=== PATIENT | male | born 1990 | race Caucasian/White ===

== ENCOUNTER 2025-04-09 15:18 | Outpatient (AMB) | payer OTHER, SELFPAY ==
--- NOTE | 2025-04-09 15:23 | MHC.PC.OV ---
Vital Signs 04/09/25 15:31 Height 5 ft 10.08 in Weight 183 lb BMI 26.2 BP 127/80 Respiration 14 Pulse 68 Pulse Source Pulse Oximeter Temp 98.6 F Temp Source Temporal Artery Scan Pulse Oximetry (%) 99 Oxygen Delivery Method Room Air Intake Visit Reasons: New Patient [employer] Good[employer] Supervisor Required: No Accompanied by: Self / Same As Patient Allergies No Known Allergies Allergy (Verified 04/09/25 15:51) Medication List - Last Reconciled 04/09/25 by Junie Connolly PA-C No Known Home Meds Tobacco use date assessed: 04/09/25 Dental Screening Dental Screen Date: 04/09/25 Did you have a dental visit in the last 12 months?: No Did you have a dental problem in the last 6 months where you did not have access to dental care?: No HPI New Patient HPI Details The patient is a 35-year-old male presenting for a new patient appointment with concerns about skin lesions and heart palpitations. The patient reports having moles that have been present since , with recent changes in size and elevation noted, particularly a large mole on the back. He has been advised by dermatologists in the past to monitor these moles for changes. The patient mentions experiencing heart palpitations, described as a sensation of gurgling or irregular heartbeats, which he associates with a family history of cardiac issues, including his father's from heart failure due to an enlarged heart. He expresses concern about these sensations and desires further evaluation to prevent similar outcomes. The patient has a history of anxiety and depression, for which he has recently started psychiatric care, including therapy and potential medication management. He reports that the cost of therapy was less than anticipated, which encouraged him to seek treatment. The patient reports recreational use of sildenafil, obtained online, for erectile dysfunction, although he does not perceive it as a significant issue. He notes experiencing adverse effects such as headaches and elevated blood pressure when taking higher doses. The patient has a history of situs inversus, confirmed during an appendicitis surgery, which resulted in atypical surgical scars due to the reversed organ placement. He reports a history of exercise-induced asthma, experiencing significant difficulty during physical activities such as running, despite using albuterol infrequently. The patient consumes alcohol but does not currently wish to cease drinking, viewing it as a social activity rather than a health concern. Social History - Substance use: Recreational use of sildenafil and alcohol consumption without desire to cease - Exercise: History of exercise-induced asthma, uses albuterol infrequently [facility] Medical History (Updated 04/09/25 @ 17:05 by Junie Connolly PA-C) Heart palpitations Alcohol use disorder Situs inversus Erectile dysfunction Intermittent palpitations Depression Anxiety Exercise-induced asthma Numerous skin moles Surgical History History of appendectomy Family History Father BP (high blood pressure) Heart failure Mother Pre-diabetes Social History Housing: House Alcohol intake: current Alcohol intake frequency: a few times a week Patient Tobacco Use Status: Former Tobacco user service: No Current occupational status: employed Cognitive needs: No Hearing needs: No Vision needs: Yes (RX glasses) Questionnaire PHQ-9 Over the last 2 weeks, how often have you been bothered by any of the following problems? 1. Little interest or pleasure in doing things: several days 2. Feeling down, depressed, or hopeless: several days 3. Trouble falling or staying asleep, or sleeping too much: nearly every day 4. Feeling tired or having little energy: several days 5. Poor appetite or overeating: nearly every day 6. Feeling bad about yourself - or that you are a failure or have let yourself or your family down: nearly every day 7. Trouble concentrating on things, such as reading the newspaper or watching television: nearly every day 8. Moving or speaking so slowly that other people could have noticed. Or the opposite - being so fidgety or restless that you have been moving around a lot more than usual: not at all 9. Thoughts that you would be better off or of hurting yourself in some way: not at all Total score: 15 Depression Screening Interpretation: Positive Depression Screening Follow-up: Existing condition and In treatment (Patient recently had an intake at the [facility] on [facility]) Depression Screening Done: Yes 82115 - PHQ-9 Billing: Yes Source: Developed by Drs. Luis Fernando Laura, Marcela B.W. Abran Diaz and colleagues, with an educational j carlos from [employer]. Thrive Questionnaire Date Thrive assessed: 04/09/25 I am a: Patient What is your living situation today?: I have a steady place to live Within the past 12 months, did the food you bought not last and you didn't have the money to get more?: Never true Within the past 12 months, did you worry whether your food would run out before you got money to buy more?: Never true Do you have trouble paying for medicines?: No Do you have trouble getting transportation to medical appointments?: No Do you have trouble paying your heating and electricity bill?: No Do you have trouble taking care of your child, family member or friend?: No Do you have trouble with day-to-day activities such as bathing, preparing meals, shopping, managing finances, etc.?: No Are you currently unemployed and looking for a job?: No Are you interested in more education?: No Please select the resources that you would like help with: None THRIVE Score: 0 AUDIT C Alcohol Use Questionnaire (AUDIT-C) 1. How often do you have a drink containing alcohol?: 4 or more times a week 2. How many drinks containing alcohol do you have on a typical day when you are drinking?: 5 or 6 3. How often do you have six or more drinks on one occasion?: Weekly Total Score: 9 Score Reviewed/Action Taken: Yes CORINA-7 AMB Questionnaire CORINA-7 Date CORINA - 7 assessed: 04/09/25 Feeling nervous, anxious, or on edge: 2 = More than half the days Not being able to stop or control worryin = Several days Worrying too much about different things: 2 = More than half the days Trouble relaxin = Several days Being so restless that it is hard to sit still: 0 = Not at all Becoming easily annoyed or irritable: 3 = Nearly every day Feeling afraid as if something awful might happen: 1 = Several days Total CORINA-7 score (0-4 normal; 5-9 mild; 10-14 moderate; 15-21 severe): 10 Source: Developed by Drs. Luis Fernando Laura, Abran Brothers and colleagues, with an educational j carlos from [employer]. CORINA-7 Assessment Billing CORINA-7 Assessment Tool: CORINA-7 Assessment 94322 Review of Systems Const Details: - Dermatological: Reports changes in moles, including size and elevation - Cardiovascular: Reports heart palpitations, denies chest pain or syncope - Respiratory: Reports exercise-induced asthma, denies daily use of inhaler - Neurological: Reports headaches associated with sildenafil use - Psychiatric: Reports anxiety and depression, currently under treatment All systems reviewed & are unremarkable except as noted in HPI and below Physical exam (Primary Care) Vital Signs: Last Vital Signs Temp 98.6 F 04/09/25 15:31 Pulse 68 04/09/25 15:31 Resp 14 04/09/25 15:31 BP 127/80 04/09/25 15:31 Pulse Ox 99 04/09/25 15:31 Oxygen Delivery Method Room Air 04/09/25 15:31 Care Plan Goal for BP management: <140/90 at Goal BMI result Body Mass Index 26.2 BMI Assessment/Plan discussion: High BMI High, discussed plan: lifestyle, weight reduction, dietary, physical activity and alcohol moderation Tobacco/Smoking Status: Tobacco use Status Tobacco use date assessed 04/09/25 04/09/25 15:25 Patient Tobacco Use Status Former Tobacco user 04/09/25 15:41 PHQ-9: PHQ-9 Score PHQ-9: Total score 15 04/09/25 15:52 Depression Screening Interpretation: Positive Depression Screening Follow-up: Existing condition and In treatment (Patient recently had an intake at the [facility] on [facility]) Thrive Assessment: Date of Thrive Assessment Date Thrive assessed 04/09/25 04/09/25 15:25 Const Other: Appearance: Alert. Oriented X3. No acute distress. Head: Normal external exam. Normocephalic. Atraumatic. Eyes: Pupils are equal, round, and reactive to light. Extraocular movements intact. Conjunctiva and sclera normal. Eyelids normal. Ears: External auditory canal normal. Tympanic membranes normal. Throat: Pharynx normal. Uvula midline. Moist mucous membranes. Neck: Normal inspection. Neck supple. Full range of motion. Cardiovascular: Normal heart rate and rhythm. Heart sound normal. No murmurs noted. Pulses normal throughout. Patient reports occasional heart palpitations and family history of cardiac issues. Respiratory: No respiratory distress. Painless inspiration. Breath sounds normal. No wheezes/rales/rhonchi noted. Chest nontender. No accessory muscle usage noted or decreased air movement noted. Abdomen: Soft and nontender. Bowel sounds normal in all 4 quadrants. No distention noted. No organomegaly noted. No visible injury noted. Back: No costovertebral angle tenderness. Full range of motion noted. Skin: Skin warm and dry. Normal skin color. Normal skin turgor. Multiple moles noted, with one on the back that is raised. No rashes/lesions/lacerations noted. Extremities: No lower extremity edema. Extremities exhibit normal range of motion. Extremities nontender. Neuro: Oriented X 3. No motor deficit. No sensory deficit. Reflexes normal. Coding Level of Care Code New Pt Level 4 (27637) Complex EM visit Add On G2211 Diagnoses Numerous skin moles D22.9 Exercise-induced asthma J45.990 Anxiety F41.9 Depression F32.A Erectile dysfunction N52.9 Situs inversus Q89.3 Alcohol use disorder F10.90 Heart palpitations R00.2 Additional Codes CORINA-7 Assessment Billing - CORINA-7 Assessment Tool: CORINA-7 Assessment 10026 ([id number]) PHQ-9 - 10651 - PHQ-9 Billing: Yes ([id number]) Assessment & Plan Assessment & Plan (1) Numerous skin moles: Code(s): D22.9 - Melanocytic nevi, unspecified Category: Medical Plan: The patient will be referred to dermatology for evaluation of moles that have changed in size and elevation. A dredgemaster who accepts referrals quickly will be prioritized, with an alternative option if insurance issues arise. (2) Exercise-induced asthma: Code(s): J45.990 - Exercise induced bronchospasm Category: Medical Plan: The patient is advised to use albuterol as needed for exercise-induced asthma symptoms. (3) Anxiety: Code(s): F41.9 - Anxiety disorder, unspecified Category: Medical Plan: The patient has initiated psychiatric care, including therapy and potential medication management, with no immediate changes to this plan discussed. (4) Depression: Code(s): F32.A - Depression, unspecified Category: Medical Plan: The patient has initiated psychiatric care, including therapy and potential medication management, with no immediate changes to this plan discussed. (5) Erectile dysfunction: Code(s): N52.9 - Male erectile dysfunction, unspecified Category: Medical Plan: The patient is advised to refrain from using sildenafil until cardiac evaluation is complete due to potential cardiovascular side effects. A prescription for sildenafil will be considered after ensuring cardiac health is stable. (6) Situs inversus: Code(s): Q89.3 - Situs inversus Category: Medical Plan: No specific interventions are planned for situs inversus at this time, as it is a known anatomical variation. (7) Alcohol use disorder: Code(s): F10.90 - Alcohol use, unspecified, uncomplicated Category: Medical Plan: The patient does not express a desire to cease alcohol consumption, and no intervention is planned at this time. (8) Heart palpitations: Code(s): R00.2 - Palpitations Category: Medical Plan: The patient will undergo a stress test, ultrasound, and Holter monitor to evaluate cardiac function due to a family history of heart disease. Blood work will be conducted to assess for any underlying conditions contributing to palpitations. Plan Plan Patient was informed and verbally consented to the use of an ambient scribe for clinic note documentation during this visit. 1. Skin Lesions The patient will be referred to dermatology for evaluation of moles that have changed in size and elevation. A dredgemaster who accepts referrals quickly will be prioritized, with an alternative option if insurance issues arise. 2. Erectile Dysfunction The patient is advised to refrain from using sildenafil until cardiac evaluation is complete due to potential cardiovascular side effects. A prescription for sildenafil will be considered after ensuring cardiac health is stable. 3. Anxiety And Depression The patient has initiated psychiatric care, including therapy and potential medication management, with no immediate changes to this plan discussed. 4. Heart Palpitations The patient will undergo a stress test, ultrasound, and Holter monitor to evaluate cardiac function due to a family history of heart disease. Blood work will be conducted to assess for any underlying conditions contributing to palpitations. 5. Situs Inversus No specific interventions are planned for situs inversus at this time, as it is a known anatomical variation. 6. Exercise-Induced Asthma The patient is advised to use albuterol as needed for exercise-induced asthma symptoms. 7. Alcohol Use The patient does not express a desire to cease alcohol consumption, and no intervention is planned at this time. During the visit, I discussed the need for dermatology referral for the patient's changing moles and the importance of cardiac evaluation due to family history of heart disease. I advised the patient to refrain from using sildenafil until cardiac health is confirmed and discussed the potential side effects of its use. We reviewed the patient's psychiatric care plan and the affordability of therapy, which has encouraged him to continue treatment. I also explained the process for upcoming tests, including stress test, ultrasound, and Holter monitor, and the importance of fasting for blood work. Orders: Orders CA stress test Today R00.2 - Palpitations Comprehensive [place]. Panel Fast Today Z00.00 - Encounter for general adult medical examination without abnormal findings Dihydrotestosterone Today Z00.00 - Encounter for general adult medical examination without abnormal findings Testosterone, Free/Total Today Z00.00 - Encounter for general adult medical examination without abnormal findings TSH reflex Free T4 Today Z00.00 - Encounter for general adult medical examination without abnormal findings Magnesium Today Z00.00 - Encounter for general adult medical examination without abnormal findings NM cardiolite stress test Today R00.2 - Palpitations CA echo transthoracic complete Today R00.2 - Palpitations ECG 12 lead EKG Today R00.2 - Palpitations C Reactive Protein Today Z00.00 - Encounter for general adult medical examination without abnormal findings Complete Blood Count Auto Diff Today Z00.00 - Encounter for general adult medical examination without abnormal findings Hemoglobin A1c Today Z00.00 - Encounter for general adult medical examination without abnormal findings PSA,Total (Free>4and<10) Today Z00.00 - Encounter for general adult medical examination without abnormal findings Lipid Panel Today Z00.00 - Encounter for general adult medical examination without abnormal findings Liver Panel Today Z00.00 - Encounter for general adult medical examination without abnormal findings Vitamin D 25-OH Total Today Z00.00 - Encounter for general adult medical examination without abnormal findings Vitamin B12 and Folate Today Z00.00 - Encounter for general adult medical examination without abnormal findings ECG 3 day holter monitor Today R00.2 - Palpitations Referrals Dermatology Referral D22.9 - Melanocytic nevi, unspecified Patient Instructions: - Schedule and attend dermatology appointment for mole evaluation. - Refrain from using sildenafil until cardiac evaluation is complete. - Continue psychiatric care and therapy sessions. - Complete fasting blood work as instructed. - Attend scheduled cardiac tests, including stress test and Holter monitor.
[2025-04-09 15:31] VITALS: BP 127/80; PULSE 68; RESP 14; TEMP 37; O2SAT 99; BMI 26.2
== END 2025-04-09 16:08 | disposition home or self-care (01) ==
LOC: HO.HMCSH 15:18
PROVIDERS: Visit Provider Physician Assistant Medical
DX: D22.9 Melanocytic nevi, unspecified (principal); J45.990 Exercise induced bronchospasm; F41.9 Anxiety disorder, unspecified; F32.A Depression, unspecified; N52.9 Male erectile dysfunction, unspecified; Q89.3 Situs inversus; F10.90 Alcohol use, unspecified, uncomplicated; R00.2 Palpitations

== ENCOUNTER → 2025-04-09 15:18 | Outpatient (BNVA) | payer OTHER, SELFPAY | PROVIDERS: Visit Provider Physician Assistant Medical | DX: D22.9 Melanocytic nevi, unspecified (principal); J45.990 Exercise induced bronchospasm; F41.9 Anxiety disorder, unspecified; F32.A Depression, unspecified; N52.9 Male erectile dysfunction, unspecified; F10.90 Alcohol use, unspecified, uncomplicated; R00.2 Palpitations; Q89.3 Situs inversus; Z13.31 Encounter for screening for depression; Z13.39 Encounter for screening examination for other mental health and behavioral disorders | CPT/HCPCS: 96127 ==

== ENCOUNTER 2025-04-14 09:47 | Outpatient (REF) | payer OTHER, SELFPAY ==
[2025-04-14 10:02] LABS: MANUAL DIFF FLAG NO
[2025-04-14 10:59] LABS: Hematocrit 43.4 % (42.0-52.0); Hemoglobin 14.8 g/dl (14.0-18.0); Imm Gran Abs Auto 0.05 X10*3/uL (0.00-0.03); Imm Gran Pct Auto 0.7 % (0.0-0.4); Lymphocytes Absolute Auto 2.5 X10*3/uL (1.2-4.9); Mean Corpuscular HGB Conc 34.1 g/dl (31.0-36.0); Mean Corpuscular Hemoglobin 31.9 pg (27.0-33.0); Mean Corpuscular Volume 93.5 fL (80.0-98.0); NRBC Abs Auto 0.000 X10*3/uL (0.0-0.012); NRBC Pct Auto 0.0 /100WBC (0.0-0.2); Platelet Count 333 X10*3/uL (160-400); Red Blood Count 4.64 X10*6/uL (4.60-5.80); White Blood Count 7.2 X10*3/uL (4.8-10.8)
[2025-04-14 11:41] LABS: Alanine Aminotransferase 22 U/L (0-40); Albumin Level 4.5 g/dL (3.5-5.0); Alkaline Phosphatase 81 U/L (39-117); Anion Gap 12 (12-20); Aspartate Amino Transferase 29 U/L (5-37); Blood Urea Nitrogen 17 mg/dL (9-16); Calcium 9.1 mg/dL (8.4-10.2); Carbon Dioxide 26 mmol/L (22-29); Chloride 106 mmol/L (96-108); Cholesterol 175 mg/dL (<200); Estimated Glomerular Filt Rate > 60; HDL Cholesterol 53 mg/dL (>40); Magnesium 2.1 mg/dL (1.6-2.6); Potassium 4.0 mmol/L (3.3-5.1); Sodium 140 mmol/L (135-145); Total Protein 7.3 g/dL (6.5-8.0); Triglycerides 52 mg/dL (<150)
[2025-04-14 11:50] LABS: Hemoglobin A1C 130.7748 umol/L; Total Hemoglobin (HGBA1C) 3857.0918 umol/L
[2025-04-14 11:52] LABS: PSA,Total (Free>4and<10) 1.02 ng/mL (0.00-4.00)
[2025-04-14 14:52] LABS: Folate 12.1 ng/mL (> or = 4.0); Vitamin B12 292 pg/mL (200-900)
== END 2025-04-14 09:48 | disposition home or self-care (01) ==
LOC: HO.LAB 09:47
PROVIDERS: PCP Physician Assistant Medical; Visit Provider Physician Assistant Medical
DX: Z00.00 Encounter for general adult medical examination without abnormal findings (principal); Z12.5 Encounter for screening for malignant neoplasm of prostate
CPT/HCPCS: 36415; 80053; 80061; 80076; 82248; 82306; 82607; 82642; 82746; 83036; 83735; 84153; 84402; 84403; 84443; 85025; 86140

== ENCOUNTER 2025-07-21 09:38 | Outpatient (REF) | payer OTHER, SELFPAY ==
[2025-07-21 12:00] LABS: HIV Num 1 0.06 S/CO (0.00-0.99)
[2025-07-21 13:03] LABS: CT PCR Urine DETECTED (Not Detect.); NG PCR Urine NOT DETECTED (Not Detect.)
== END 2025-07-21 09:39 | disposition home or self-care (01) ==
LOC: HO.LAB 09:38
PROVIDERS: PCP Physician Assistant Medical; Visit Provider Physician Assistant Medical
DX: Z76.89 Persons encountering health services in other specified circumstances (principal); Z11.4 Encounter for screening for human immunodeficiency virus [HIV]; Z20.2 Contact with and (suspected) exposure to infections with a predominantly sexual mode of transmission
CPT/HCPCS: 86592; 86695; 86696; 87389; 87491; 87591